=== PATIENT | female | born 2005 | race Hispanic/Latino ===

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

== ENCOUNTER 2024-05-20 18:33 | Emergency (ER) | payer SELFPAY ==
[~2024-05-20] VITALS: Ht 152.4 cm; Wt 97.5 kg
[~2024-05-20 18:33] MED LIST: AUGMENTIN 500-1 EACH PO; NAPROSYN500 MG PO
[2024-05-20 18:50] VITALS: PULSE 114; RESP 18; TEMP 97.3; O2SAT 100
[2024-05-20] MEDS: HYDROCODONE/APAP 10MG-325MG TAB PO STA (19:04)
[2024-05-20] MEDS ORDERED: ULTRAM 50MG50 MG PO (20:50)
== END 2024-05-20 21:01 | disposition home or self-care (01) ==
LOC: ER 18:40
DX: M25.561 Pain in right knee (principal); W01.0XXA Fall on same level from slipping, tripping and stumbling without subsequent striking against object, initial encounter; Y93.01 Activity, walking, marching and hiking; Y92.89 Other specified places as the place of occurrence of the external cause; E11.9 Type 2 diabetes mellitus without complications
CPT/HCPCS: 99284